=== PATIENT | male | born 1955 | race Caucasian/White ===

== ENCOUNTER 2020-08-12 14:01 | Inpatient (IN) | payer MEDICARE, OTHER ==
--- NOTE | 2020-08-12 14:34 | ED ---
General Adult HPI - General Chief complaint: Altered Mental Status Stated complaint: neuro Time Seen by Provider: 08/12/20 14:05 Source: patient, EMS, RN notes reviewed, old records reviewed Mode of arrival: EMS Limitations: language barrier - History of Present Illness Initial comments: This is a 65-year-old male who presents emergency Department with a three-day history of expressive aphasia. Patient went to [facility] day it was determined he had a subacute infarct on the right lateral frontal region. Patient states his only symptoms are his poor speech he is able to move all 4 extremities his vision is normal he has no facial weakness or drooping and he is noted. Patient denies any headache. Patient had a CT and a CT prior to arrival. Patient denies any recent fever chills per patient denies any previous history of similar. Patient denies any chest pain difficulty breathing shortness breath. Patient denies any abdominal pain. - Related Data Allergies Allergy/AdvReac Type Severity Reaction Status Date / Time No Known Allergies Allergy Verified 08/12/20 14:11 Review of Systems ROS Statement: Those systems with pertinent positive or pertinent negative responses have been documented in the HPI. ROS Other: All systems not noted in ROS Statement are negative. Past Medical History History of Any Multi-Drug Resistant Organisms: None Reported Past Psychological History: No Psychological Hx Reported Smoking Status: Never smoker Past Alcohol Use History: None Reported Past Drug Use History: None Reported General Exam - General Exam Comments Initial Comments: GENERAL: Patient is well-developed and well-nourished. Patient is nontoxic and well- hydrated and is in mild distress. ENT: Neck is soft and supple. No significant lymphadenopathy is noted. Oropharynx is clear. Moist mucous membranes. Neck has full range of motion without eliciting any pain. EYES: The sclera were anicteric and conjunctiva were pink and moist. Extraocular movements were intact and pupils were equal round and reactive to light. Eyelids were unremarkable. PULMONARY: Unlabored respirations. Good breath sounds bilaterally. No audible rales rhonchi or wheezing was noted. CARDIOVASCULAR: There is a regular rate and rhythm without any murmurs gallops or rubs. ABDOMEN: Soft and nontender with normal bowel sounds. No palpable organomegaly was noted. There is no palpable pulsatile mass. SKIN: Skin is clear with no lesions or rashes and otherwise unremarkable. NEUROLOGIC: Patient is alert and oriented x3. Cranial nerves II through XII are grossly intact. Motor and sensory are also intact. Patient has significant expressive aphasia MUSCULOSKELETAL: Normal extremities with adequate strength and full range of motion. LYMPHATICS: No significant lymphadenopathy is noted PSYCHIATRIC: Normal psychiatric evaluation. Limitations: language barrier Course Vital Signs 08/12/20 14:04 Temperature 98 F Pulse Rate 88 Respiratory 18 Rate Blood Pressure 131/80 O2 Sat by Pulse 96 Oximetry Medical Decision Making - Medical Decision Making I reviewed patient's labs and CT results from the other facility. I spoke with Dr. Degroot he agreed to admit the patient admitted the patient I consult the neurology Disposition Clinical Impression: CVA (cerebral vascular accident) Disposition: ADMITTED IP TO THIS HOSP Referrals: Silverio Ag MD [Primary Care Provider] - 1-2 days Time of Disposition: 14:34
[2020-08-12] MEDS ORDERED: LORazepam 1 MG TAB PO STA (15:10)
[2020-08-12 16:58] LABS: Glucose,Whole Blood 245 mg/dL (75-99)
[2020-08-12] MEDS: INSULIN ASPART (NovoLOG) 100 UNIT/ML VIAL SQ SCH ×2 (18:17→20:21)
[2020-08-12] MEDS: HYDROcodone/APAP 5-325MG 1 EACH TAB PO PRN (18:20)
--- NOTE | 2020-08-12 18:30 | P.CNNES ---
History of Present Illness Consult date: 08/12/20 Requesting physician: Markell Modi Reason for Consult: CVA History of Present Illness: Patient is a 65-year-old male transferred from [facility] for evaluation of an acute stroke. Patient's was also present at the time of this interview. She states that on Monday morning, 08/10/2020 he was fine. She talked to him at 12:30 PM and was still fine. When she talked to him at 2:30 PM, patient not able to express himself, only saying "no no". She asked him to come to ER but he declined. The next day on Monday he was slightly better but still not talking. Patient did not have any headache, problem with the vision, facial droop, focal numbness tingling weakness or balance issues. He was not complaining of any headache. This morning patient's symptoms persisted, therefore she took him to [facility] at 8:30 AM. Patient underwent Computed tomography scan of the head, which revealed subtle acute to subacute cortical infarct focally along the lateral left frontal lobe. No mass effect or midline shift. No acute intracranial hemorrhage. 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 The constitution of a diminutive V4 segment possibly from retrograde flow. Mild 30% focal narrowing proximal right ICA just above the carotid bulb. Eccentric soft plaque involving the mid and upper left common carotid artery causing a mo derate, 50% luminal narrowing. The left ICA is patent. CTA of the head revealed mild atherosclerotic calcifications throughout the carotid siphons. No large vessel intracranial arterial occlusion. Aside from the diminutive V4 segment right vertebral artery mentioned above, secondary to occluded right vertebral artery at the neck, no significant stenosis or aneurysmal changes is seen. Images suggest an incidental left-sided DVA draining the region of the left basal ganglia. Patient's blood tests shows negative troponin. UA negative. Chem-20 is normal. Blood glucose 216. Sodium 128, CPK 97 ammonia 27. CBC normal. PT 13.7 INR 1.04. EKG normal sinus rhythm. Patient was transferred to [facility] and he arrived here at 2 PM. Patient's states he is doing slightly better. Patient has history of hypertension, hyperlipidemia, and has diabetes for last 5-6 years. He has smoked 2 packs per day for 20 years, quit 28 years ago. Patient has coronary artery disease, and history of cardiac stent for which she is on Plavix 70 5M daily for last 12 years. Review of Systems Patient denies any headache, no fever. No history of head or neck trauma. He has history of some tunnel injury 28 years ago. Denies chest pain, abdominal pain nausea vomiting diarrhea. No focal numbness or tingling. All other review of systems unremarkable. Past Medical History History of Any Multi-Drug Resistant Organisms: None Reported Past Psychological History: No Psychological Hx Reported Smoking Status: Never smoker Past Alcohol Use History: None Reported Past Drug Use History: None Reported Medications and Allergies Home Medications Medication Instructions Recorded Confirmed Type Amitriptyline HCl [Elavil] 50 mg PO HS 08/12/20 08/12/20 History Clopidogrel Bisulfate [Plavix] 75 mg PO DAILY 08/12/20 08/12/20 History Enalapril [Vasotec] 5 mg PO DAILY 08/12/20 08/12/20 History HYDROcodone/APAP 5-325MG [[place] 1 tab PO Q6H PRN 08/12/20 08/12/20 History 5-325] Insulin Aspart (Niacinamide) 12 units SQ AC-BID@1200,1800 08/12/20 08/12/20 History [Fiasp 100 Unit/ml Flextouch] Insulin Degludec [Tresiba 68 units SQ HS 08/12/20 08/12/20 History Flextouch U-200] Metoprolol Tartrate [Lopressor] 25 mg PO BID 08/12/20 08/12/20 History Pantoprazole Sodium [Protonix] 40 mg PO DAILY 08/12/20 08/12/20 History Simvastatin 80 mg PO HS 08/12/20 08/12/20 History Allergies Allergy/AdvReac Type Severity Reaction Status Date / Time No Known Allergies Allergy Verified 08/12/20 15:05 Physical Examination - Vital Signs Vital Signs: Vital Signs Temp Pulse Resp BP Pulse Ox 08/12/20 14:04 98 F 88 18 131/80 96 Intake and Output 08/12/20 08/12/20 08/12/20 06:59 14:59 22:59 Other: Weight 86.183 kg On examination patient is an elderly male, in no acute distress. He is alert and awake, somewhat quiet. However when he speaks, the speech has no dysarthria or aphasia. Patient has slight hesitancy in the speech. He was able to name 3/3 objects correctly. He can repeat very well. Patient's comprehension is intact. On cranial nerve examination pupils are round and reactive to light, visual richards are full on confrontation with no neglect. Extraocular muscles are intact without nystagmus. Patient has very mild drooping of the angle of the right side of the mouth but appears normal and active testing. Tongue protrudes the midline. Palatal elevation sensation normal. On muscle strength testing there is no pronator drift and the strength is normal in arms and legs distally and proximally reflexes are 1+ and plantars downgoing. Sensory touch is equal. No ataxia for yehgvi-rr-ycne or inth-ot-rjmo testing. Tone and bulk of muscles normal. Gait deferred. No carotid bruit, S1 and S2 audible. Peripheral pulses present. Abdomen soft nontender. Assessment and Plan Assessment: * Acute ischemic CVA involving the left frontal cortical region, possibly embolic. * Hypertension * Diabetes * Hyperlipidemia * X tobacco use. Plan: * Patient was on Plavix 75 mg daily for almost 12 years. We'll add aspirin regimen for now. * MRI of the brain to evaluate for an acute stroke. * Fasting a.m. lipid panel, hemoglobin A1c. * 2-D echo with bubble study to rule out PFO. * CTA of head and neck only showed left vertebral artery occlusion, but otherwise no significant ICA stenosis. * Telemetry monitoring rule out arrhythmia. * Patient's speech is much improved. Patient will need speech therapy. * Neurology will follow.
[2020-08-12 19:49] LABS: Glucose,Whole Blood 296 mg/dL (75-99)
[2020-08-12] MEDS: INSULIN DETEMIR (LEVEMIR) 100 UNIT/ML SYR SQ SCH (20:21)
[2020-08-12] MEDS: AMITRIPTYLINE HCL 50 MG TAB PO SCH (20:21)
[2020-08-12] MEDS: ATORVASTATIN 40 MG TAB PO SCH (20:21)
[2020-08-12] MEDS ORDERED: METOPROLOL TARTRATE 25 MG TAB PO SCH (21:00)
--- NOTE | 2020-08-12 22:12 | P.HPIM ---
History of Present Illness H&P Date: 08/12/20 Chief Complaint: difficulty speaking History of presenting complaint: This is a pleasant 65-year-old patient of Dr. Silverio Nick. Patient was transferred here from [facility]. Most of the history is updated from my colleague neurologist. Patient on Monday morning this August 10 he was doing fine. At around 2:30 PM patient not able to express himself only saying no no. That time had declined to go to the ER. The following day was slightly better. Patient had no other neurological symptoms or focal symptoms. No headache or change in vision or difficulty swallowing. Finally she was taken not to [facility] this morning. Computed tomography scan of the brain showed subacute cortical infarct along the lateral left frontal lobe.. CT of the neck revealed occlusion of the right vertebral artery. 30% focal narrowing of the proximal right ICA. Patient was transferred at this afternoon around 2 PM. Patient states his speech is now a bit better. She still not able to express at times. No other neurological deficit. Review of systems: GEN.: None EYES: None HEENT: None NECK: None RESPIRATORY: None CARDIOVASCULAR: None GASTROINTESTINAL: None GENITOURINARY: None MUSCULOSKELETAL: Joint pains LYMPHATICS: None HEMATOLOGICAL: None PSYCHIATRY: None NEUROLOGICAL: As above Past medical history to include: Coronary artery disease, hypertension, diabetes, hypercholesterolemia, insomnia Social history: No history of smoking or alcohol. . Family history: Patient cannot tell Physical examination: VITAL SIGNS: 98, 88, 18, 131/80, 96% on room air GENERAL: BMI 30.7, laying in bed, comfortable. EYES: Pupils equal. Conjunctiva normal. HEENT: External appearance of nose and ears normal, oral cavity grossly normal. NECK: JVD not raised; masses not palpable. HEART: First and second heart sounds are normal; no edema. LUNGS: Respiratory rate normal; clear to auscultation. ABDOMEN: Soft, nontender, liver spleen not palpable, no masses palpable. PSYCH: Unable to assessl. NEUROLOGICAL: Cranial nerves grossly intact; no facial asymmetry, able to speak this sometimes will unable to bring out words. power and sensation grossly intact. LYMPHATICS: No lymph nodes palpable in the axilla and neck Assessment: -Subacute stroke occurring 3 days ago likely ischemic in the left lateral frontal lobe. Predominant manifesting as expressive dysphasia -Coronary artery with stent over 10 years ago -Hypertension -Hyperlipidemia -Diabetes mellitus type 2 -Obesity BMI 30.7 Plan: Patient's continued home medications orally on Plavix. Aspirin was added. Add Lovenox for DVT prophylaxis. Consult speech therapist. No trouble swallowing. Accu-Cheks are being followed. Care was discussed with the patient. MRI of the brain was ordered. Lipid panel ordered. Past Medical History Past Medical History: Coronary Artery Disease (CAD), Myocardial Infarction ([place]) Additional Past Medical History / Comment(s): two heart attacks 2011 Last Myocardial Infarction Date:: 2011 History of Any Multi-Drug Resistant Organisms: None Reported Past Surgical History: Joint Replacement, Orthopedic Surgery Additional Past Surgical History / Comment(s): work accident 1991 Past Anesthesia/Blood Transfusion Reactions: No Reported Reaction Past Psychological History: No Psychological Hx Reported Smoking Status: Never smoker Past Alcohol Use History: None Reported Past Drug Use History: None Reported Medications and Allergies Home Medications Medication Instructions Recorded Confirmed Type Amitriptyline HCl [Elavil] 50 mg PO HS 08/12/20 08/12/20 History Clopidogrel Bisulfate [Plavix] 75 mg PO DAILY 08/12/20 08/12/20 History Enalapril [Vasotec] 5 mg PO DAILY 08/12/20 08/12/20 History HYDROcodone/APAP 5-325MG [[place] 1 tab PO Q6H PRN 08/12/20 08/12/20 History 5-325] Insulin Aspart (Niacinamide) 12 units SQ AC-BID@1200,1800 08/12/20 08/12/20 History [Fiasp 100 Unit/ml Flextouch] Insulin Degludec [Tresiba 68 units SQ HS 08/12/20 08/12/20 History Flextouch U-200] Metoprolol Tartrate [Lopressor] 25 mg PO BID 08/12/20 08/12/20 History Pantoprazole Sodium [Protonix] 40 mg PO DAILY 08/12/20 08/12/20 History Simvastatin 80 mg PO HS 08/12/20 08/12/20 History Allergies Allergy/AdvReac Type Severity Reaction Status Date / Time No Known Allergies Allergy Verified 08/12/20 15:05 Physical Exam Vitals: Vital Signs Temp Pulse Pulse Resp BP BP Pulse Ox 08/12/20 15:58 97.8 F 76 14 134/78 97 08/12/20 15:19 76 18 135/76 98 08/12/20 14:04 98 F 88 18 131/80 96 Intake and Output 08/12/20 08/12/20 08/12/20 06:59 14:59 22:59 Intake Total 236 Balance 236 Intake: Oral 236 Other: Weight 86.183 kg 86.183 kg Results Labs: Abnormal Lab Results - Last 24 Hours (Table) 08/12/20 08/12/20 Range/Units 16:57 19:48 POC Glucose (mg/dL) 245 H 296 H (75-99) mg/dL Thrombosis Risk Factor Assmnt - Choose All That Apply Any of the Below Risk Factors Present?: No Each Risk Factor Represents 2 Points: Age 61-74 years Other congenital or acquired thrombophilia - If yes, enter type in comment: No Thrombosis Risk Factor Assessment Total Risk Factor Score: 2 Thrombosis Risk Factor Assessment Level: Low Risk
[2020-08-12] MEDS ORDERED: ENOXAPARIN 40 MG/0.4 ML SYRINGE SQ SCH (22:30)
[2020-08-13 01:59] VITALS: RESP 16
[2020-08-13] MEDS ORDERED: HEPARIN SODIUM,PORCINE 5,000 UNIT/ML 1 ML VIAL IV PRN (02:33)
[2020-08-13] MEDS ORDERED: HEPARIN SODIUM,PORCINE 5,000 UNIT/ML 1 ML VIAL IV ONE (02:33)
[2020-08-13] MEDS ORDERED: HEPARIN SOD,PORK IN 0.45% NACL 25,000 UNIT in 0.45% NACL 1 250ML.BAG IV SCH (02:45)
[2020-08-13 03:25] LABS: Basophils # (A) 0.1 k/uL (0-0.2); Basophils % (A) 2 %; Eosinophils # (A) 0.1 k/uL (0-0.7); Eosinophils % (A) 2 %; HCT 51.3 % (39.0-53.0); HGB 16.4 gm/dL (13.0-17.5); Lymphocytes # (A) 2.9 k/uL (1.0-4.8); Lymphocytes % (A) 35 %; MCH 30.8 pg (25.0-35.0); MCV 96.1 fL (80.0-100.0); Mean Platelet Volume 7.4; Monocytes # (A) 0.9 k/uL (0-1.0); Monocytes % (A) 10 %; Neutrophils # (A) 4.1 k/uL (1.3-7.7); Neutrophils % (A) 50 %; Platelet Count 205 k/uL (150-450); RBC 5.34 m/uL (4.30-5.90); WBC 8.3 k/uL (3.8-10.6)
[2020-08-13 04:03] LABS: Cholesterol 184 mg/dL (<200); HDL Cholesterol 37 mg/dL (40-60); LDL Cholesterol,Calculated 114 mg/dL (0-99); Triglycerides 166 mg/dL (<150)
[2020-08-13 06:08] LABS: Glucose,Whole Blood 101 mg/dL (75-99)
[2020-08-13] MEDS: INSULIN ASPART (NovoLOG) 100 UNIT/ML VIAL SQ SCH ×6 (07:10→21:23)
[2020-08-13 08:42] LABS: Partial Thromboplastin Time 26.5 sec (22.0-30.0); Prothrombin Time 10.2 sec (9.0-12.0)
[2020-08-13] MEDS ORDERED: ASPIRIN 325 MG TAB PO SCH (09:00)
[2020-08-13] MEDS ORDERED: CLOPIDOGREL 75 MG TAB PO SCH (09:00)
[2020-08-13] MEDS ORDERED: LORazepam 2 MG/ML INJ IV STA (09:06)
[2020-08-13] MEDS: lisinopriL 10 MG TAB PO SCH (09:07)
[2020-08-13] MEDS: METOPROLOL TARTRATE 50 MG TAB PO SCH ×2 (09:08→21:22)
[2020-08-13] MEDS: PANTOPRAZOLE 40 MG TABLET PO SCH (09:08)
[2020-08-13 09:24] LABS: Basophils # (A) 0.1 k/uL (0-0.2); Basophils % (A) 1 %; Eosinophils # (A) 0.1 k/uL (0-0.7); Eosinophils % (A) 1 %; HCT 53.9 % (39.0-53.0); HGB 17.3 gm/dL (13.0-17.5); Lymphocytes # (A) 2.3 k/uL (1.0-4.8); Lymphocytes % (A) 29 %; MCH 31.5 pg (25.0-35.0); MCHC 32.2 g/dL (31.0-37.0); MCV 97.7 fL (80.0-100.0); Mean Platelet Volume 7.5; Monocytes # (A) 0.7 k/uL (0-1.0); Monocytes % (A) 9 %; Neutrophils # (A) 4.7 k/uL (1.3-7.7); Neutrophils % (A) 59 %; Platelet Count 197 k/uL (150-450); RBC 5.51 m/uL (4.30-5.90); RDW 12.1 % (11.5-15.5)
[2020-08-13 09:39] LABS: African American GFR (CKD) >90 (>60 ml/min/1.73 sqM); Anion Gap 8 mmol/L; Blood Urea Nitrogen 16 mg/dL (9-20); Calcium 9.6 mg/dL (8.4-10.2); Carbon Dioxide 27 mmol/L (22-30); Chloride 105 mmol/L (98-107); Glucose 221 mg/dL (74-99); Non-African American GFR(CKD) 85 (>60 ml/min/1.73 sqM); Potassium 4.7 mmol/L (3.5-5.1); Sodium 140 mmol/L (137-145)
--- NOTE | 2020-08-13 11:27 | MR ---
EXAMINATION TYPE: MR brain wo con DATE OF EXAM: 08/13/2020 COMPARISON: Outside CT head dated 08/12/2020 HISTORY: Acute CVA TECHNIQUE: T1-weighted sagittal, T2, FLAIR, and diffusion axial, and T2 coronal coronal views of the brain are submitted. FINDINGS: There is a 1.7 cm area of acute ischemia involving the left frontal parietal junction as well as the superior left frontal cortex with an additional area measuring approximately 1.8 cm. No midline shift or mass effect. Mild generalized degenerative change. Confluent areas of signal surrounding the periventricular white matter are most typical remote ischemic change. Craniocervical junction maintained. Sella turcica has a normal appearance. No cerebellopontine angle mass. Changes of chronic sinusitis. IMPRESSION: 1. There are two areas of acute ischemia involving the left parietal lobe as measured above. No signi ficant mass effect or midline shift. 2. Degenerative changes
[2020-08-13 12:14] LABS: Glucose,Whole Blood 183 mg/dL (75-99)
--- NOTE | 2020-08-13 12:23 | P.CRDCN ---
History of Present Illness Consult date: 08/13/20 History of present illness: CHIEF COMPLAINT: Atrial flutter HISTORY OF PRESENT ILLNESS: 65-year-old male with history of hypertension, hyperlipidemia, diabetes mellitus, and coronary artery disease who was transferred from [facility] secondary to CVA. Patient follows in the office with Dr. Rodriguez. He reports having a cardiac cath about 10 years ago and had a stent inserted at that time. Patient was noted to be in atrial flutter overnight and cardiology was consulted for evaluation. Patient was started on a heparin drip. Patient examined this morning at the bedside. He continues to have some expressive aphasia. He denies shortness of breath. He denies chest pain. Denies palpitations. Denies dizziness or lightheadedness. DIAGNOSTICS: EKG reveals atrial flutter Laboratory data: WBC 8.3. Hemoglobin 15.6 platelet count 205. Current home cardiac medications include Simvastatin 80 mg daily, Lopressor 25 mg twice a day, Vasotec 5 mg daily, and Plavix 75 mg daily REVIEW OF SYSTEMS: CONSTITUTIONAL: Denies fever or chills. HEENT: Denies blurred vision, vision changes, or eye pain. Denies hemoptysis CARDIOVASCULAR: Denies chest pain, orthopnea, PND or palpitations RESPIRATORY: No shortness of breath. GASTROINTESTINAL: Denies abdominal pain. Denies nausea or vomiting. HEMATOLOGIC: Denies bleeding disorders. GENITOURINARY: Denies any blood in urine. SKIN: Denies pruitis. Denies rash. PHYSICAL EXAM: VITAL SIGNS: Reviewed. GENERAL: Well-developed in no acute distress. HEENT: Head is normocephalic. Pupils are equal, round. Sclerae anicteric. Mucous membranes of the mouth are moist. Neck supple. No JVD or thyromegaly LUNGS: Respirations even and unlabored. Lungs essentially clear to auscultation bilaterally. HEART: Irregular rate and rhythm. S1 and S2 heard. ABDOMEN: Soft. Nondistended. Nontender. EXTREMITIES: Normal range of motion. No clubbing or cyanosis. Peripheral pulses intact. No lower extremity edema NEUROLOGIC: Awake and alert. Oriented x 3. Patient with expressive aphasia. ASSESSMENT: Acute ischemic CVA involving left frontal cortical region Atrial flutter, typical Coronary artery disease with previous stent Hypertension Hyperlipidemia Diabetes mellitus, type II PLAN: Continue current cardiac medications Increase metoprolol to 50 mg twice a day for optimal heart rate control Continue IV heparin drip Case management to check coverage for Eliquis. Will check with neurology to ensure they are okay with beginning Eliquis Obtain 2-D echo to assess cardiac structure and function Past Medical History Past Medical History: Coronary Artery Disease (CAD), Myocardial Infarction ([place]) Additional Past Medical History / Comment(s): two heart attacks 2011 Last Myocardial Infarction Date:: 2011 History of Any Multi-Drug Resistant Organisms: None Reported Past Surgical History: Joint Replacement, Orthopedic Surgery Additional Past Surgical History / Comment(s): work accident 1991 Past Anesthesia/Blood Transfusion Reactions: No Reported Reaction Past Psychological History: No Psychological Hx Reported Smoking Status: Never smoker Past Alcohol Use History: None Reported Past Drug Use History: None Reported Medications and Allergies Home Medications Medication Instructions Recorded Confirmed Type Amitriptyline HCl [Elavil] 50 mg PO HS 08/12/20 08/12/20 History Clopidogrel Bisulfate [Plavix] 75 mg PO DAILY 08/12/20 08/12/20 History Enalapril [Vasotec] 5 mg PO DAILY 08/12/20 08/12/20 History HYDROcodone/APAP 5-325MG [[place] 1 tab PO Q6H PRN 08/12/20 08/12/20 History 5-325] Insulin Aspart (Niacinamide) 12 units SQ AC-BID@1200,1800 08/12/20 08/12/20 His tory [Fiasp 100 Unit/ml Flextouch] Insulin Degludec [Tresiba 68 units SQ HS 08/12/20 08/12/20 History Flextouch U-200] Metoprolol Tartrate [Lopressor] 25 mg PO BID 08/12/20 08/12/20 History Pantoprazole Sodium [Protonix] 40 mg PO DAILY 08/12/20 08/12/20 History Simvastatin 80 mg PO HS 08/12/20 08/12/20 History Apixaban [Eliquis] 5 mg PO BID #60 tab 08/13/20 Rx Allergies Allergy/AdvReac Type Severity Reaction Status Date / Time No Known Allergies Allergy Verified 08/12/20 15:05 Physical Exam Vitals: Vital Signs Temp Pulse Pulse Resp BP BP Pulse Ox 08/13/20 04:00 79 16 114/73 97 08/13/20 00:00 96 16 128/75 96 08/12/20 20:00 98.2 F 94 16 125/62 92 L 08/12/20 15:58 97.8 F 76 14 134/78 97 08/12/20 15:19 76 18 135/76 98 08/12/20 14:04 98 F 88 18 131/80 96 Intake and Output 08/12/20 08/13/20 08/13/20 22:59 06:59 14:59 Intake Total 236 Balance 236 Intake: Oral 236 Other: Voiding Method Toilet Toilet Weight 86.183 kg 92 kg Results 08/13/20 08:35 08/13/20 08:35 Lipids 08/13/20 Range/Units 02:50 Triglycerides 166 H (<150) mg/dL Cholesterol 184 (<200) mg/dL HDL Cholesterol 37 L (40-60) mg/dL CBC 08/13/20 Range/Units 02:50 WBC 8.3 (3.8-10.6) k/uL RBC 5.34 (4.30-5.90) m/uL Hgb 16.4 (13.0-17.5) gm/dL Hct 51.3 (39.0-53.0) % Plt Count 205 (150-450) k/uL Current Medications Generic Name Dose Route Start Last Admin Trade Name Freq PRN Reason Stop Dose Admin Hydrocodone Bitart/Acetaminophen 1 each 08/12/20 17:47 08/12/20 18:20 Hydrocodone/Apap 5-325mg 1 Each Tab PO 1 each Q6H PRN Administration Pain Amitriptyline HCl 50 mg 08/12/20 21:00 08/12/20 20:21 Amitriptyline Hcl 50 Mg Tab PO 50 mg HS PATI Administration Aspirin 325 mg 08/13/20 09:00 Aspirin 325 Mg Tab PO DAILY PATI Atorvastatin Calcium 40 mg 08/12/20 21:00 08/12/20 20:21 Atorvastatin 40 Mg Tab PO 40 mg HS PATI Administration Clopidogrel Bisulfate 75 mg 08/13/20 09:00 Clopidogrel 75 Mg Tab PO DAILY PATI Heparin Sodium (Porcine) 0 unit 08/13/20 02:33 Heparin Sodium,Porcine 5,000 Unit/Ml 1 Ml Vial IV PER PROTOCOL PRN Low PTT Protocol Heparin Sodium/Sodium Chloride 250 mls @ 9.997 mls/hr 08/13/20 02:45 08/13/20 03:31 25,000 unit/ Sodium Chloride IV 11.6 units/kg/hr .Q24H PATI 9.997 mls/hr Administration Protocol 11.6 UNITS/KG/HR Insulin Aspart 12 unit 08/12/20 18:00 08/12/20 18:17 Insulin Aspart (Novolog) 100 Unit/Ml Vial SQ 12 unit AC-BID@1200,1800 PATI Administration Insulin Aspart 0 unit 08/12/20 21:00 08/13/20 07:10 Insulin Aspart (Novolog) 100 Unit/Ml Vial SQ Not Given ACHS PATI Protocol Insulin Detemir 68 unit 08/12/20 21:00 08/12/20 20:21 Insulin Detemir (Levemir) 100 Unit/Ml Syr SQ 68 unit HS PATI Administration Lisinopril 10 mg 08/13/20 09:00 Lisinopril 10 Mg Tab PO DAILY PATI Metoprolol Tartrate 25 mg 08/12/20 21:00 08/12/20 20:21 Metoprolol Tartrate 25 Mg Tab PO 25 mg BID PATI Administration Pantoprazole Sodium 40 mg 08/13/20 09:00 Pantoprazole 40 Mg Tablet PO DAILY PATI Intake and Output 08/12/20 08/13/20 08/13/20 22:59 06:59 14:59 Intake Total 236 Balance 236 Intake: Oral 236 Other: Voiding Method Toilet Toilet Weight 86.183 kg 92 kg 08/13/20 02:50 Assessment and Plan Plan: Nurse practitioner note has been reviewed by physician. Signing provider agrees with the documented findings, assessment, and plan of care.
--- NOTE | 2020-08-13 13:04 | P.PN ---
Subjective Progress Note Date: 08/13/20 Patient was seen for a follow-up. Patient's family was not present today. Still having problem with expressive aphasia. Patient can name and repeat very well. He can write. Just has fluency issues, with hesitancy with the speech. Denies any numbness tingling or headache. Patient's telemetry monitoring overnight showed atrial flutter. Patient started on heparin IV. Objective - Vital Signs Vital signs: Vital Signs Temp 97.8 F 08/13/20 12:00 Pulse 111 H 08/13/20 12:00 Resp 16 08/13/20 12:00 BP 120/73 08/13/20 12:00 Pulse Ox 96 08/13/20 12:00 Intake & Output 08/12/20 08/13/20 08/13/20 18:59 06:59 18:59 Intake Total 236 182.475 Balance 236 182.475 Weight 86.183 kg 92 kg Intake: Intake, IV Titration 82.475 Amount Heparin Sod,Pork in 0.45% 82.475 NaCl 25,000 unit In 0.45 % NaCl 1 250ml.bag @ 11.6 UNITS/KG/HR 9.997 mls/hr IV .Q24H [facility] Rx#: [id number] Oral 236 100 Other: Voiding Method Toilet Toilet - Exam On examination patient is alert and awake in no distress. He can name repeat very well. He can write. He is just nonfluent. He has mild right facial asymmetry. Tongue protrudes the midline. Visual richards are full. Muscle strength is normal. No pronator drift. No ataxia. Sensations are equal. - Labs CBC & Chem 7: 08/13/20 08:35 08/13/20 08:35 Labs: Abnormal Lab Results - Last 24 Hours (Table) 08/12/20 08/12/20 08/13/20 Range/Units 16:57 19:48 02:50 Hct (39.0-53.0) % APTT (22.0-30.0) sec Glucose (74-99) mg/dL POC Glucose (mg/dL) 245 H 296 H (75-99) mg/dL Triglycerides 166 H (<150) mg/dL LDL Cholesterol, Calc 114 H (0-99) mg/dL HDL Cholesterol 37 L (40-60) mg/dL 0908/13/20 08/13/20 Range/Units 06:07 08:35 08:35 Hct 53.9 H (39.0-53.0) % APTT 35.8 H (22.0-30.0) sec Glucose (74-99) mg/dL POC Glucose (mg/dL) 101 H (75-99) mg/dL Triglycerides (<150) mg/dL LDL Cholesterol, Calc (0-99) mg/dL HDL Cholesterol (40-60) mg/dL 08/13/20 08/13/20 Range/Units 08:35 11:28 Hct (39.0-53.0) % APTT (22.0-30.0) sec Glucose 221 H (74-99) mg/dL POC Glucose (mg/dL) 183 H (75-99) mg/dL Triglycerides (<150) mg/dL LDL Cholesterol, Calc (0-99) mg/dL HDL Cholesterol (40-60) mg/dL Assessment and Plan Assessment: * 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 Patient has transcortical motor aphasia. * New onset atrial flutter. * Hypertension * Diabetes * Hyperlipidemia * X tobacco use. Plan: * Patient has developed new onset atrial flutter. Heparin IV has been started. Most recent PTT 35.8. Patient's stroke is most likely cardioembolic. Okay to start Apixaban. * MRI of the brain revealed 2 areas of acute ischemia involving the left parietal lobe. No significant mass effect or midline shift. No hemorrhagic conversion. * Fasting a.m. lipid panel revealed cholesterol 184, LDL 114, HDL 37 and triglycerides 166. Continue Lipitor 40 mg. Hemoglobin A1c pending. * 2-D echo with bubble study pending. * CTA of head and neck only showed left vertebral artery occlusion, but otherwise no significant ICA stenosis. * Permissible hypertension for 24 hours. Avoid blood pressure medications, unless necessary from cardiac standpoint for atrial flutter. May continue home medications. * Patient will need speech therapy.
[2020-08-13] MEDS: HYDROcodone/APAP 5-325MG 1 EACH TAB PO PRN (14:28)
[2020-08-13 17:09] LABS: Glucose,Whole Blood 201 mg/dL (75-99)
--- NOTE | 2020-08-13 18:01 | P.PN ---
Progress Note - Text Progress Note Date: 08/13/20 Chief Complaint: difficulty speaking History of presenting complaint: This is a pleasant 65-year-old patient of Dr. Silverio Nick. Patient was transferred here from [facility]. Most of the history is updated from my colleague neurologist. Patient on Monday morning this August 10 he was doing fine. At around 2:30 PM patient not able to express himself only saying no no. That time had declined to go to the ER. The following day was slightly better. Patient had no other neurological symptoms or focal symptoms. No headache or change in vision or difficulty swallowing. Finally she was taken not to [facility] this morning. Computed tomography scan of the brain showed subacute cortical infarct along the lateral left frontal lobe.. CT of the neck revealed occlusion of the right vertebral artery. 30% focal narrowing of the proximal right ICA. Patient was transferred at this afternoon around 2 PM. Patient states his speech is now a bit better. She still not able to express at times. No other neurological deficit. Admitted with subacute stroke. Started on aspirin, IV heparin. Today-some improvement in his speech. A. fib at rapid rate earlier today. No other new symptoms. Review of systems: Was done for constitutional, cardiovascular, GI, pulmonary. Neurological relevant finding as above, Consultation: Dr. Martita North from cardiology Dr. Smith from neurology Active Medications Hydrocodone Bitart/Acetaminophen (Hydrocodone/Apap 5-325mg 1 Each Tab) 1 each PO Q6H PRN PRN Reason: Pain Last Admin: 08/13/20 14:28 Dose: 1 each Documented by: Amitriptyline HCl (Amitriptyline Hcl 50 Mg Tab) 50 mg PO HS PATI Last Admin: 08/12/20 20:21 Dose: 50 mg Documented by: Apixaban (Apixaban 5 Mg Tab) 5 mg PO BID PATI Aspirin (Aspirin 81 Mg) 81 mg PO DAILY PATI Atorvastatin Calcium (Atorvastatin 40 Mg Tab) 40 mg PO HS PATI Last Admin: 08/12/20 20:21 Dose: 40 mg Documented by: Heparin Sodium (Porcine) (Heparin Sodium,Porcine 5,000 Unit/Ml 1 Ml Vial) 0 unit IV PER PROTOCOL PRN; Protocol PRN Reason: Low PTT Last Admin: 08/13/20 11:52 Dose: 2,150 unit Documented by: Heparin Sodium/Sodium Chloride (25,000 unit/ Sodium Chloride) 250 mls @ 9.997 mls/hr IV .Q24H [facility]; Protocol Stop: 08/13/20 21:00 Last Titration: 08/13/20 11:46 Dose: 13.6 units/kg/hr, 11.721 mls/hr Documented by: Insulin Aspart (Insulin Aspart (Novolog) 100 Unit/Ml Vial) 12 unit SQ AC- BID@1200,1800 [facility] Last Admin: 08/13/20 17:15 Dose: 12 unit Documented by: Insulin Aspart (Insulin Aspart (Novolog) 100 Unit/Ml Vial) 0 unit SQ ACHS [facility]; Protocol Last Admin: 08/13/20 17:15 Dose: 2 unit Documented by: Insulin Detemir (Insulin Detemir (Levemir) 100 Unit/Ml Syr) 68 unit SQ HS [facility] Last Admin: 08/12/20 20:21 Dose: 68 unit Documented by: Lisinopril (Lisinopril 10 Mg Tab) 10 mg PO DAILY [facility] Last Admin: 08/13/20 09:07 Dose: 10 mg Documented by: Metoprolol Tartrate (Metoprolol Tartrate 50 Mg Tab) 50 mg PO BID [facility] Last Admin: 08/13/20 09:08 Dose: 50 mg Documented by: Pantoprazole Sodium (Pantoprazole 40 Mg Tablet) 40 mg PO DAILY [facility] Last Admin: 08/13/20 09:08 Dose: 40 mg Documented by: Physical examination: VITAL SIGNS: 97.8, 93, 16, 120/73, 96% room air GENERAL: laying in bed, comfortable. EYES: Pupils equal. Conjunctiva normal. HEENT: External appearance of nose and ears normal, oral cavity grossly normal. NECK: JVD not raised; masses not palpable. HEART: First and second heart sounds are normal; no edema. LUNGS: Respiratory rate normal; clear to auscultation. ABDOMEN: Soft, nontender, liver spleen not palpable, no masses palpable. PSYCH: Anxious NEUROLOGICAL: Cranial nerves grossly intact; no facial asymmetry, able to speak this sometimes will unable to bring out words. power and sensation grossly intact. Investigations: LDL 114 TSH 2.2 white count 8 hemoglobin 7.3 creatinine 0.95 MRI brain-to 80 has an acute ischemia involving the left parietal lobe. Assessment: -Subacute stroke occurring 3 days ago likely embolic in the left lateral frontal lobe-from underlying atrial fibrillation. Predominant manifesting as expressive dysphasia -Coronary artery with stent over 10 years ago -Hypertension -Hyperlipidemia -Diabetes mellitus type 2 -Obesity BMI 30.7 -Persistent atrial fibrillation with rate uncontrolled this morning -IV heparin monitoring Plan: Patient be switched over from IV heparin to eliquis. Other medications to continue. Patient also aspirin and Lipitor. Care was discussed with the patient. Discussed with Dr. brown from neurology. 2-D echocardiogram with bubble study pending.
[2020-08-13 20:49] LABS: Glucose,Whole Blood 133 mg/dL (75-99)
[2020-08-13] MEDS: INSULIN DETEMIR (LEVEMIR) 100 UNIT/ML SYR SQ SCH (21:22)
[2020-08-13] MEDS: APIXABAN 5 MG TAB PO SCH (21:22)
[2020-08-13] MEDS: ATORVASTATIN 40 MG TAB PO SCH (21:22)
[2020-08-13] MEDS: AMITRIPTYLINE HCL 50 MG TAB PO SCH (21:22)
[2020-08-14 06:13] LABS: Glucose,Whole Blood 203 mg/dL (75-99)
[2020-08-14] MEDS: INSULIN ASPART (NovoLOG) 100 UNIT/ML VIAL SQ SCH ×3 (06:57→12:24)
[2020-08-14] MEDS: lisinopriL 10 MG TAB PO SCH (08:15)
[2020-08-14] MEDS: PANTOPRAZOLE 40 MG TABLET PO SCH (08:15)
[2020-08-14] MEDS: APIXABAN 5 MG TAB PO SCH (08:15)
[2020-08-14] MEDS: METOPROLOL TARTRATE 50 MG TAB PO SCH (08:15)
[2020-08-14] MEDS ORDERED: ASPIRIN 81 MG PO SCH (09:00)
--- NOTE | 2020-08-14 09:46 | ECHOF ---
Referral Reason:Acute CVA MEASUREMENTS -------- HEIGHT: 167.6 cm WEIGHT: 91.6 kg BP: 114/73 IVSd: 1.3 cm (0.6 - 1.1) LVIDd: 3.7 cm (3.9 - 5.3) LVPWd: 1.6 cm (0.6 - 1.1) EDV(Teich): 58 ml IVSs: 1.6 cm LVIDs: 2.9 cm LVPWs: 1.5 cm %IVS Thck: 20 % ESV(Teich): 31 ml EF(Teich): 47 % %FS: 23 % SV(Teich): 27 ml RVIDd: 2.7 cm (< 3.3) LALs A4C: 5.0 cm LAAs A4C: 14.3 cm LAESV A-L A4C: 35 ml LAESV MOD A4C: 33 ml LALs A2C: 4.4 cm LAAs A2C: 14.1 cm LAESV A-L A2C: 38 ml LAESV MOD A2C: 35 ml LAESV(A-L): 39 ml LAESV Index (A-L): 19.33 ml/m Ao Diam: 2.8 cm (2.0 - 3.7) AV Cusp: 1.4 cm (1.5 - 2.6) EPSS: 0.7 cm LVOT Vmax: 0.60 m/s LVOT maxP.43 mmHg AV Vmax: 1.63 m/s AV maxP.61 mmHg AV Vmax: 1.86 m/s AV Vmean: 1.26 m/s AV maxP.90 mmHg AV meanP.43 mmHg AV Env.Ti: 247 ms AV VTI: 30.8 cm AR Vmax: 3.73 m/s AR maxP.71 mmHg AR PHT: 431 ms AR Dec Time: 1485 ms AR Dec [place]: 2.5 m/s TR Vmax: 1.74 m/s TR maxP.10 mmHg RAP: 5.00 mmHg RVSP: 17.10 mmHg MV EF SLOPE: 66.20 mm/s (70 - 150) MV EXCURSION: 13.54 mm (> 18.000) FINDINGS -------- All hayes not well visulized The left ventricular size is normal. There is mild concentric left ventricular hypertrophy. Overa ll left ventricular systolic function is low-normal with, an EF between 50 - 55 %. Left ventricular fillimg pressure cannot be estimated due to Atrial fibrillation. The right ventricle is normal in size. Normal LA size by volume 22+/-6 ml/m2. The right atrial size is normal. 5.0mg of Lumason was utilized for enhancement of images Interatrial and interventricular septum intact. Negative agitated saline study. There is mild aortic valve sclerosis. There is mild aortic regurgitation. There is no evidence of aortic stenosis. Mild mitral regurgitation is present. Mild tricuspid regurgitation present. There is no evidence of pulmonary hypertension. The right v entricular systolic pressure, as measured by Doppler, is 17.10mmHg. There is no pulmonic regurgitation present. The aortic root size is normal. IVC Not well visulized. There is no pericardial effusion. CONCLUSIONS -------- 1. The left ventricular size is normal. 2. There is mild concentric left ventricular hypertrophy. 3. Overall left ventricular systolic function is low-normal with, an EF between 50 - 55 %. 4. Left ventricular fillimg pressure cannot be estimated due to Atrial fibrillation. 5. Negative agitated saline study. 6. There is mild aortic valve sclerosis. 7. There is mild aortic regurgitation. 8. Mild mitral regurgitation is present. 9. Mild tricuspid regurgitation present. CUPOLA WORKER: Jimena Cuevas [facility]
[2020-08-14 10:02] LABS: Basophils # (A) 0.1 k/uL (0-0.2); Basophils % (A) 1 %; Eosinophils # (A) 0.1 k/uL (0-0.7); Eosinophils % (A) 1 %; HCT 52.2 % (39.0-53.0); HGB 16.5 gm/dL (13.0-17.5); Lymphocytes # (A) 1.9 k/uL (1.0-4.8); Lymphocytes % (A) 22 %; MCH 31.2 pg (25.0-35.0); MCHC 31.7 g/dL (31.0-37.0); MCV 98.4 fL (80.0-100.0); Mean Platelet Volume 7.4; Monocytes # (A) 0.9 k/uL (0-1.0); Monocytes % (A) 10 %; Neutrophils # (A) 5.6 k/uL (1.3-7.7); Neutrophils % (A) 65 %; Platelet Count 196 k/uL (150-450); RDW 12.1 % (11.5-15.5); WBC 8.7 k/uL (3.8-10.6)
[2020-08-14 10:15] LABS: Calcium 9.4 mg/dL (8.4-10.2); Potassium 4.8 mmol/L (3.5-5.1)
--- NOTE | 2020-08-14 10:49 | P.PN ---
Subjective Progress Note Date: 08/14/20 CHIEF COMPLAINT: Atrial flutter HISTORY OF PRESENT ILLNESS: Patient examined this morning at the bedside. He reports improvement in speech. He denies chest pain. Denies shortness of breath. He remains in atrial flutter. Heart rate low 100s this morning. Ec hocardiogram completed yesterday reveals EF 50-55%, negative agitated saline study, mild aortic regurgitation, mild mitral regurgitation, and mild tricuspid regurgitation PHYSICAL EXAM: VITAL SIGNS: Reviewed. GENERAL: Well-developed in no acute distress. HEENT: Head is normocephalic. Pupils are equal, round. Sclerae anicteric. Mucous membranes of the mouth are moist. Neck supple. No JVD or thyromegaly LUNGS: Respirations even and unlabored. Lungs essentially clear to auscultation bilaterally. HEART: Irregular rate and rhythm. S1 and S2 heard. ABDOMEN: Soft. Nondistended. Nontender. EXTREMITIES: Normal range of motion. No clubbing or cyanosis. Peripheral pulses intact. No lower extremity edema NEUROLOGIC: Awake and alert. Oriented x 3. Patient with expressive aphasia. ASSESSMENT: Acute ischemic CVA involving left frontal cortical region Atrial flutter, typical Coronary artery disease with previous stent Hypertension Hyperlipidemia Diabetes mellitus, type II PLAN: Continue current cardiac medications Patient's co-pay for Eliquis is $8 monthly per case management Spoke with neurology yesterday who is agreeable to beginning Eliquis Will continue aspirin 81 mg daily. Plavix DC as patients stent was many years ago per patient. Stable for discharge from a cardiac standpoint. Will defer to internal medicine Nurse practitioner note has been reviewed by physician. Signing provider agrees with the documented findings, assessment, and plan of care. Objective - Vital Signs Vital signs: Vital Signs Temp 98.0 F 08/14/20 08:13 Pulse 104 H 08/14/20 08:59 Resp 16 08/14/20 09:13 BP 178/73 08/14/20 08:13 Pulse Ox 96 08/14/20 08:13 Intake & Output 08/13/20 08/14/20 08/14/20 18:59 06:59 18:59 Intake Total 412.475 Output Total 1200 0 Balance -787.525 0 Weight 92.5 kg Intake: Intake, IV Titration 82.475 Amount Heparin Sod,Pork in 0.45% 82.475 NaCl 25,000 unit In 0.45 % NaCl 1 250ml.bag @ 11.6 UNITS/KG/HR 9.997 mls/hr IV .Q24H [facility] Rx#: [id number] Oral 330 Output: Urine 1200 0 Other: Voiding Method Toilet Toilet Toilet # Voids 3 - Labs CBC & Chem 7: 08/14/20 09:43 08/14/20 09:43 Labs: Abnormal Lab Results - Last 24 Hours (Table) 08/13/20 08/13/20 08/13/20 Range/Units 02:50 11:28 17:01 APTT (22.0-30.0) sec Glucose (74-99) mg/dL POC Glucose (mg/dL) 183 H 201 H (75-99) mg/dL Hemoglobin A1c 9.0 H (4.0-6.0) % 08/13/20 08/13/20 08/14/20 Range/Units 17:31 20:48 06:12 APTT 50.2 H (22.0-30.0) sec Glucose (74-99) mg/dL POC Glucose (mg/dL) 133 H 203 H (75-99) mg/dL Hemoglobin A1c (4.0-6.0) % 08/14/20 Range/Units 09:43 APTT (22.0-30.0) sec Glucose 252 H (74-99) mg/dL POC Glucose (mg/dL) (75-99) mg/dL Hemoglobin A1c (4.0-6.0) %
[2020-08-14 12:16] VITALS: BP 111/69; PULSE 71; TEMP 98.1
[2020-08-14 12:43] LABS: Glucose,Whole Blood 201 mg/dL (75-99)
--- NOTE | 2020-08-14 22:30 | P.DS ---
Providers Date of admission: 08/12/20 14:40 Expected date of discharge: 08/14/20 Attending physician: Tyrone Degroot Consults: 08/12/20 14:41 Consult Physician Routine Consulting Provider: Kenzie Jovel Consult Reason/Comments: CVA Do you want consulting provider notified?: Yes 08/13/20 02:15 Consult Physician Routine Consulting Provider: Dariusz North Consult Reason/Comments: aflutter Do you want consulting provider notified?: Already Contacted Primary care physician: Silverio Blum [facility] Course: Chief Complaint: difficulty speaking History of presenting complaint: This is a pleasant 65-year-old patient of Dr. Silverio Nick. Patient was transferred here from [facility]. Most of the history is updated from my colleague neurologist. Patient on Monday morning this August 10 he was doing fine. At around 2:30 PM patient not able to express himself only saying no no. That time had declined to go to the ER. The following day was slightly better. Patient had no other neurological symptoms or focal symptoms. No headache or change in vision or difficulty swallowing. Finally she was taken not to [facility] this morning. Computed tomography scan of the brain showed subacute cortical infarct along the lateral left frontal lobe.. CT of the neck revealed occlusion of the right vertebral artery. 30% focal narrowing of the proximal right ICA. Patient was transferred at this afternoon around 2 PM. Patient states his speech is now a bit better. She still not able to express at times. No other neurological deficit. Admitted with subacute stroke. Started on aspirin, IV heparin. Stroke felt to be embolic. From underlying atrial fibrillation. Swished over to eliquis. Some improvement in his speech. Seen by speech therapist. Today-care was discussed with the patient. Questions answered. Heart rate controlled. MRI of the brain did show 2 areas of infarct in the left parietal lobe. Dose of just CIWA insulin increased to 80 units in the evening and insulin aspart increased to 12 units with meals. Discussion and discharge planning more than 35 minutes Review of systems: Was done for constitutional, cardiovascular, GI, pulmonary. Neurological relevant finding as above, Consultation: Dr. Martita North from cardiology Dr. Smith from neurology Physical examination: VITAL SIGNS: 98.1, 71, 16, 111/69, 98% on room air GENERAL: laying in bed, comfortable. EYES: Pupils equal. Conjunctiva normal. HEENT: External appearance of nose and ears normal, oral cavity grossly normal. NECK: JVD not raised; masses not palpable. HEART: First and second heart sounds are normal; no edema. LUNGS: Respiratory rate normal; clear to auscultation. ABDOMEN: Soft, nontender, liver spleen not palpable, no masses palpable. PSYCH: Anxious NEUROLOGICAL: Expressive dysarthria. Investigations: Accu-Cheks 203, 201 White count 8.7 hemoglobin 16.5 creatinine 1.03 LDL 114 TSH 2.2 white count 8 hemoglobin 7.3 creatinine 0.95 MRI brain-to 80 has an acute ischemia involving the left parietal lobe. 2-D echocardiogram EF 50-55% Assessment: -Subacute stroke occurring 3 days ago likely embolic in the left lateral frontal lobe-from underlying atrial fibrillation. Predominant manifesting as expressive dysphasia -Coronary artery with stent over 10 years ago -Hypertension -Hyperlipidemia -Diabetes mellitus type 2, uncontrolled with hyperglycemia -Obesity BMI 30.7 -Persistent atrial fibrillation with rate uncontrolled -IV heparin monitoring Disposition: Home Patient Condition at Discharge: Stable Plan - Discharge Summary Discharge Rx Participant: No New Discharge Prescriptions: New Apixaban [Eliquis] 5 mg PO BID #60 tab Aspirin 81 mg PO DAILY #30 chewable Metoprolol Tartrate [Lopressor] 50 mg PO BID #60 tab Atorvastatin [Lipitor] 40 mg PO HS #30 tab lisinopriL [Zestril] 10 mg PO DAILY #30 tab Continue Pantoprazole Sodium [Protonix] 40 mg PO DAILY HYDROcodone/APAP 5-325MG [[place] 5-325] 1 tab PO Q6H PRN PRN Reason: Pain Amitriptyline HCl [Elavil] 50 mg PO HS Changed Insulin Aspart (Niacinamide) [Fiasp 100 Unit/ml Flextouch] 12 units SQ AC-TID #0 Insulin Degludec [Tresiba Flextouch U-200] 80 units SQ HS #0 Discontinued Simvastatin 80 mg PO HS Metoprolol Tartrate [Lopressor] 25 mg PO BID Enalapril [Vasotec] 5 mg PO DAILY Clopidogrel Bisulfate [Plavix] 75 mg PO DAILY Discharge Medication List Amitriptyline HCl [Elavil] 50 mg PO HS 08/12/20 [History] HYDROcodone/APAP 5-325MG [[place] 5-325] 1 tab PO Q6H PRN 08/12/20 [History] Pantoprazole Sodium [Protonix] 40 mg PO DAILY 08/12/20 [History] Apixaban [Eliquis] 5 mg PO BID #60 tab 08/13/20 [Rx] Aspirin 81 mg PO DAILY #30 chewable 08/14/20 [Rx] Atorvastatin [Lipitor] 40 mg PO HS #30 tab 08/14/20 [Rx] Insulin Aspart (Niacinamide) [Fiasp 100 Unit/ml Flextouch] 12 units SQ AC-TID #0 08/14/20 [Rx] Insulin Degludec [Tresiba Flextouch U-200] 80 units SQ HS #0 08/14/20 [Rx] Metoprolol Tartrate [Lopressor] 50 mg PO BID #60 tab 08/14/20 [Rx] lisinopriL [Zestril] 10 mg PO DAILY #30 tab 08/14/20 [Rx] Follow up Appointment(s)/Referral(s): Silverio Ag MD [Primary Care Provider] - 1-2 days Wally Scott MD [STAFF PHYSICIAN] - 1 Week (call monday for appt) Dayne Rodriguez MD [STAFF PHYSICIAN] - 08/21/20 2:15 pm Patient Instructions/Handouts: Left Hemispheric Stroke (DC) Activity/Diet/Wound Care/Special Instructions: mo copay for pts Eliquis is $8.95 Discharge Disposition: HOME SELF-CARE
== END 2020-08-14 12:41 | disposition home or self-care (01) | DRG 65 ==
LOC: EC 14:01 → 3SCARD 14:40
PROVIDERS: ADMIT Hospitalist; ATTEND Hospitalist
DX: I63.89 Other cerebral infarction (principal); I48.19 Other persistent atrial fibrillation; I48.3 Typical atrial flutter; E66.9 Obesity, unspecified; E78.5 Hyperlipidemia, unspecified; I10 Essential (primary) hypertension; I25.10 Atherosclerotic heart disease of native coronary artery without angina pectoris; R47.01 Aphasia; I65.01 Occlusion and stenosis of right vertebral artery; E11.65 Type 2 diabetes mellitus with hyperglycemia; G47.00 Insomnia, unspecified; R40.2363 Coma scale, best motor response, obeys commands, at hospital admission; R47.02 Dysphasia; R40.2143 Coma scale, eyes open, spontaneous, at hospital admission; R40.2233 Coma scale, best verbal response, inappropriate words, at hospital admission; I25.2 Old myocardial infarction; Z68.30 Body mass index [BMI] 30.0-30.9, adult; Z95.5 Presence of coronary angioplasty implant and graft; Z79.899 Other long term (current) drug therapy; Z79.82 Long term (current) use of aspirin; Z79.4 Long term (current) use of insulin; Z79.02 Long term (current) use of antithrombotics/antiplatelets; Z79.01 Long term (current) use of anticoagulants; Z87.891 Personal history of nicotine dependence
CPT/HCPCS: 70551; 80048; 80061; 83036; 84443; 85025; 85610; 85730; 93306; 99285

== ENCOUNTER → 2020-09-04 | Day surgery (SDC) | payer MEDICARE ==
[2020-09-03 08:53] VITALS: BMI 30.7
[~2020-09-04] MED LIST: LACTATED RINGERS 1,000 ML IV SCH; SODIUM CHLORIDE 0.9% 1,000 ML IV SCH
[2020-09-04 06:21] VITALS: BP 160/78; PULSE 78; RESP 16; TEMP 98
--- NOTE | 2020-09-11 12:18 | P.PCN ---
Date of Procedure: 09/11/20 Preoperative Diagnosis: Atrial fibrillation Postoperative Diagnosis: Sinus rhythm Procedure(s) Performed: EKG Description of Procedure: This patient was brought in for cardioversion because of persistent atrial fibrillation 8 by the time patient came to the hospital, patient converted to sinus rhythm. The procedure was canceled. Cardioversion was not performed. Patient was discharged home.
== END ==
LOC: CATHCVL 06:04
PROVIDERS: ATTEND Internal Medicine Cardiovascular Disease
DX: I48.19 Other persistent atrial fibrillation (principal); Z53.8 Procedure and treatment not carried out for other reasons; I10 Essential (primary) hypertension; I25.10 Atherosclerotic heart disease of native coronary artery without angina pectoris; E78.5 Hyperlipidemia, unspecified; E11.9 Type 2 diabetes mellitus without complications; I25.2 Old myocardial infarction; I69.320 Aphasia following cerebral infarction; I65.09 Occlusion and stenosis of unspecified vertebral artery; Z79.01 Long term (current) use of anticoagulants; Z72.0 Tobacco use; Z79.4 Long term (current) use of insulin; Z79.02 Long term (current) use of antithrombotics/antiplatelets; Z79.82 Long term (current) use of aspirin; Z79.899 Other long term (current) drug therapy; Z82.49 Family history of ischemic heart disease and other diseases of the circulatory system
CPT/HCPCS: 93005